=== PATIENT | male | born 1970 | race Caucasian/White ===

== ENCOUNTER 2022-05-20 19:21 | Observation (INO) | payer OTHER ==
[~2022-05-20] VITALS: Ht 172.7 cm; Wt 117.9 kg
[2022-05-20 21:04] LABS: HEMOGLOBIN 13.5 gm/dl (14.0-17.5); RED BLOOD COUNT 4.22 M/UL (4.20-5.50)
[2022-05-20 21:30] LABS: BUN/CREATININE RATIO 24 (0-10)
[2022-05-21 01:54] LABS: HEMOGLOBIN 13.4 gm/dl (14.0-17.5); RED BLOOD COUNT 4.24 M/UL (4.20-5.50)
[2022-05-21 02:19] LABS: BUN/CREATININE RATIO 21 (0-10)
--- NOTE | 2022-05-21 07:00 | NUR ---
Called Dr. Bryan, reported BP of 153/104, provider provided no additional orders at this time, he said to monitor it.
[2022-05-21] MEDS ORDERED: ATORVASTATIN CA20 MG PO ×2 (10:52→16:30)
[2022-05-21] MEDS ORDERED: POTASSIUM CHLO10 ME1 PO (10:53)
[2022-05-21] MEDS ORDERED: CELECOXIB100 MG PO (10:54)
[2022-05-21] MEDS ORDERED: FUROSEMIDE20 MG PO ×2 (10:55→16:30)
[2022-05-21] MEDS ORDERED: METOPROLOL TART50 MG PO ×2 (10:55→16:30)
[2022-05-21] MEDS ORDERED: ASPIRIN EC81 MG PO (16:30)
== END 2022-05-21 19:15 | disposition home or self-care (01) ==
LOC: ER1 19:21 → CDU 05-21 00:12 → M/S 05-21 00:12
PROVIDERS: Emergency Medicine; ADMIT Internal Medicine
DX: R07.89 Other chest pain (principal); Z20.822 Contact with and (suspected) exposure to COVID-19; E78.5 Hyperlipidemia, unspecified; I11.0 Hypertensive heart disease with heart failure; I50.9 Heart failure, unspecified; M19.90 Unspecified osteoarthritis, unspecified site; F10.10 Alcohol abuse, uncomplicated; E66.9 Obesity, unspecified; Z68.39 Body mass index [BMI] 39.0-39.9, adult; I25.2 Old myocardial infarction; Z79.899 Other long term (current) drug therapy; Z87.891 Personal history of nicotine dependence
CPT/HCPCS: 36415; 71045; 78452; 80048; 80053; 80061; 82550; 82553; 83036; 83735; 83880; 84100; 84484; 85025; 93005; 93017; 99285; A9502; G0378; J2785; U0002